=== PATIENT | male | born 1985 | race Caucasian/White ===

== ENCOUNTER → 2023-04-29 | Outpatient (CLI) | payer OTHER, SELFPAY ==
[2023-04-29 15:40] LABS: Prothrombin Time (Protime)PT. 13.4 SECONDS (11.7-14.9)
[2023-04-29 15:41] LABS: Partial Thromboplast Time 28.4 Seconds (24.1-36.2)
[2023-04-29 15:53] LABS: AST(SGOT) 42 U/L (15-37); Alanine Aminotransfer ALT/SGPT 92 U/L (16-61); Albumin, Serum 4.1 g/dL (3.2-5.0); Alkaline Phosphatase 78 U/L (45-117); Bilirubin, Direct 0.13 mg/dL (0.00-0.30); GGTP 63 U/L (15-85); Globulin 4.4 g/dL (2.2-4.2); Protein, Total 8.5 g/dL (6.4-8.2)
[2023-05-02 21:07] LABS: AFP, Tumor Marker 2.1 ng/mL (0.0-6.9); HCV Quant. RNA PCR 986000 IU/mL (.); HCV log 10 5.994 (.); Hepatitis C Genotype 1a (.)
== END | disposition home or self-care (01) ==
PROVIDERS: Referring Provider Internal Medicine Gastroenterology; Visit Provider Internal Medicine Gastroenterology
DX: B19.20 Unspecified viral hepatitis C without hepatic coma (principal)
CPT/HCPCS: 36415; 80076; 82105; 82977; 85610; 85730; 87522; 87902

== ENCOUNTER 2023-05-12 22:20 | Emergency (ER) | payer OTHER, SELFPAY ==
[2023-05-12 22:22] VITALS: BP 135/73; PULSE 88; RESP 13; TEMP 36.9; O2SAT 97; BMI 19.8
[2023-05-12 22:28] VITALS: O2SAT 96
--- OUTSIDE RECORDS SUMMARY | 2023-05-12 22:42 | XMS RPT_ITS | CCD ---
Author Name Unknown Address [address] [place] [address] Organization [facility] Care Team Providers Care Palliative Medicine Physician Name Role Phone KAYLEIGH CEDEÑO Referring Unavailable Unavailable Primary Care Provider UnavailRASTA Paulino Attending Unavailable ANILA WAGNER Primary Care Unavailable Bernard DIRECTOR OF HEALTH CARE MARKETINGTEW[facility]OSPITALAnila Primary Care Provider Bernadr PARTY PLAN SELLING DISTRIBUTORAnila Primary Care Provider ANILA WAGNER Primary Care Unavailable BERNARD, ANILA Camargo Primary Care Unavailable ANJU HINDS Attending Unavailable RED MOE Referring Unavailable ANILA WAGNER Primary Care Unavailable BERNARD, ANILA Camargo Primary Care Unavailable ANJU HINDS Attending Unavailable ANILA WAGNER Primary Care Unavailable SALOME LEE Referring Unavailable BERNARD, ANILA ACOSTA Primary Care Unavailable SERENA VELÁZQUEZ Attending Unavailable CAMELIA WOODARD Attending Unavailable ZAFAR MONTEMAYOR Referring Unavailable BERNARD, ANILA JEREZE Primary Care Unavailable YOLANDA EUBANKS Admitting Unavailable SERENA VELÁZQUEZ Consulting Unavailable ANILA WAGNER Primary Care Unavailable ANILA WAGNER Attending Unavailable ANILA WAGNER Referring Unavailable Allergies Allergy Classification Reported Allergen(s) Allergy Type Date of Onset Reaction(s) Facility (10 sources) traMADol; Translations: [TRAMADOL] Drug Allergy 5 Rash, Hives, Itching [facility] [place], [place] (6 sources) Naloxone; Translations: [NALOXONE] Drug Allergy 4 Rash, Hives, Swelling [facility] Medications Current Medications Medication Drug Class(es) Dates Sig (Normalized) Sig (Original) buprenorphine 8 mg sublingual tablet (2 sources) Partial Opioid Agonist Start: 02-02-2020 buprenorphine (SUBUTEX) 8 MG SUBL SL tablet DISSOLVE 1 TAB UNDER TONGUE TWICE A DAY 0 02/02/2020 Active Completed/Discontinued Medications Medication Drug Class(es) Dates Sig (Normalized) Sig (Original) acetaminophen 325 mg oral tablet (1 source) Start: 04-26-2023 End: 04-26-2023 acetaminophen (Tylenol) tablet 650 mg diphenhydrAMINE (1 source) Histamine-1 Receptor Antagonist Start: 02-27-2023 End: 02-27-2023 diphenhydrAMINE (BENADryl) injection 25 mg ibuprofen 600 mg oral tablet (1 source) Nonsteroidal Anti-inflammatory Drug Start: 03-18-2020 take 1 tablet by mouth every six hours as needed ibuprofen (MOTRIN) 600 mg tablet Take 1 tablet by mouth every 6 hours as needed for Pain. 28 tablet 0 03/18/2020 Active Problems Active Problems Problem Classification Problem Date Documented Da te Episodic/Chronic Esophageal disorders (3 sources) Gastroesophageal reflux disease without esophagitis; Translations: [Gastro-esophageal reflux disease without esophagitis] Onset: 4 04-29-2023 Chronic Esophageal disorders (4 sources) Achalasia of esophagus; Translations: [Achalasia of cardia] Onset: 4 04-26-2023 Episodic Headache; including migraine (1 source) Acute headache; Translations: [Acute nonintractable headache, unspecified headache type] 02-27-2023 Episodic Headache; including migraine (2 sources) Headache; including migraine; Translations: [Headache, unspecified] Onset: 3 Nonspecific chest pain (3 sources) Chest pain; Translations: [Chest pain, unspecified] Onset: 4 04-26-2023 Episodic Other gastrointestinal disorders (1 source) Dysphagia, unspecified; Translations: [Dysphagia, unspecified type] Onset: 4 Episodic Other lower respiratory disease (2 sources) Shortness of breath; Translations: [Shortness of breath] Onset: 4 Episodic Past or Other Problems Problem Classification Problem Date Documented Da te Episodic/Chronic Viral infection (1 source) Viral disease; Translations: [Viral illness] Episodic Results Test Name Value Interpretation Reference Range Facil ity Vital Signs Date Time Vital Sign Value Performing Clinician Facility 04-29-2023 02:03-0500 Diastolic blood pressure 71 mm[Hg] Anju Hinds DO Work Phone: [phone] [place] [address] 04-29-2023 02:03-0500 Heart rate 77 /min Anju Hinds DO Work Phone: 9([phone])[phone] [place] [address] 04-29-2023 02:03-0500 Respiratory rate 16 /min Anju Hinds DO Work Phone: 0([phone])[phone] [place] [address] 04-29-2023 02:03-0500 SaO2% (BldA) [Mass fraction] 98 % Anju Hinds DO Work Phone: 6(862)[phone] [place] [address] 04-29-2023 02:03-0500 Systolic blood pressure 128 mm[Hg] Anju Hinds DO Work Phone: 9(278)[phone] [place] [address] 04-28-2023 23:25-0500 Body height 180.3 cm Anju Hinds DO Work Phone: 6([phone])[phone] [place] [address] 04-28-2023 23:25-0500 Body mass index (BMI) [Ratio] 21.2 kg/m2 Anju Hinds DO Work Phone: 9(479)[phone] [place] [address] 04-28-2023 23:25-0500 Body temperature 98.01 [degF] Anju Hinds DO Work Phone: 6(132)[phone] [place] [address] 04-28-2023 23:25-0500 Body weight 68.95 kg Anju Hinds DO Work Phone: 3(630)[phone] [place] [address] 04-26-2023 20:47-0500 Diastolic blood pressure 55 mm[Hg] Red Moe DO Work Phone: 6(049)[phone] [place] [address] 04-26-2023 20:47-0500 Heart rate 82 /min Red Moe DO Work Phone: 1(328)[phone] [place] [address] 04-26-2023 20:47-0500 Respiratory rate 18 /min Red Moe DO Work Phone: [facility] 04-26-2023 20:47-0500 SaO2% (BldA) [Mass fraction] 99 % Red Moe DO Work Phone: [facility] 04-26-2023 20:47-0500 Systolic blood pressure 121 mm[Hg] Red Monrealersen DO Work Phone: [facility] 04-26-2023 17:01-0500 Body height 180.3 cm Red Moe DO Work Phone: 4(998)[phone] [place] [address] 04-26-2023 17:01-0500 Body mass index (BMI) [Ratio] 21.48 kg/m2 Red Moe DO Work Phone: 7(203)[phone] [place] [address] 04-26-2023 17:01-0500 Body temperature 98.29 [degF] Red Moe DO Work Phone: 7(400)[phone] [place] [address] 04-26-2023 17:01-0500 Body weight 69.85 kg Red Moe DO Work Phone: [facility] 02-27-2023 12:00-0500 Diastolic blood pressure 88 mm[Hg] Anila Wagner DIRECTOR OF HEALTH CARE MARKETING-PARTY PLAN SELLING DISTRIBUTOR Work Phone: 8([phone] [place] [address] 02-27-2023 12:00-0500 Heart rate 75 /min Anilacampbell Coronadoany DIRECTOR OF HEALTH CARE MARKETING-PARTY PLAN SELLING DISTRIBUTOR Work Phone: [phone] [place] [address] 02-27-2023 12:00-0500 Respiratory rate 17 /min Anila Delany DIRECTOR OF HEALTH CARE MARKETING-PARTY PLAN SELLING DISTRIBUTOR Work Phone: 7([phone])[phone] [place] [address] 02-27-2023 12:00-0500 SaO2% (BldA) [Mass fraction] 98 % Anila Delany DIRECTOR OF HEALTH CARE MARKETING-PARTY PLAN SELLING DISTRIBUTOR Work Phone: [phone] [place] [address] 02-27-2023 12:00-0500 Systolic blood pressure 134 mm[Hg] Anila Delany DIRECTOR OF HEALTH CARE MARKETING-PARTY PLAN SELLING DISTRIBUTOR Work Phone: 1(344)[phone] [place] [address] 02-27-2023 09:55-0500 Body height 180.3 cm Anila Cliffharshal DIRECTOR OF HEALTH CARE MARKETING-PARTY PLAN SELLING DISTRIBUTOR Work Phone: [facility] 02-27-2023 09:55-0500 Body mass index (BMI) [Ratio] 21.48 kg/m2 Anila Wagner DIRECTOR OF HEALTH CARE MARKETING-PARTY PLAN SELLING DISTRIBUTOR Work Phone: [facility] 02-27-2023 09:55-0500 Body temperature 97 [degF] Anila Cliffharshal DIRECTOR OF HEALTH CARE MARKETING-PARTY PLAN SELLING DISTRIBUTOR Work Phone: [facility] 02-27-2023 09:55-0500 Body weight 69.85 kg Anila Wagner DIRECTOR OF HEALTH CARE MARKETING-PARTY PLAN SELLING DISTRIBUTOR Work Phone: [facility] Encounters Encounter Date Encounter Type Care Provider Facility Start: 05-07-2023 End: 05-08-2023 ambulatory ANILA WAGNER [facility] Start: 05-02-2023 End: 05-02-2023 ambulatory SALOME LEE Facility:[facility] Start: 05-01-2023 End: 05-03-2023 ambulatory CAMELIA WOODARD Facility:[facility] Start: 04-30-2023 Emergency department patient visit [facility] Facility[facility] Start: 04-30-2023 Telephone encounter Valorie norris MD Work Phone: DC Provider Adult Start: 04-29-2023 End: 04-29-2023 Emergency department patient visit ANILA WAGNER [facility] Start: 04-28-2023 End: 04-29-2023 Emergency department patient visit Anju Hinds DO Work Phone: [facility] Emergency Medicine Procedures Date Procedure Procedure Detail Performing Clinician Start: 04-29-2023 XR CHEST 1 VIEW ANILA RIVAS Start: 04-29-2023 Radiologic exam ches t single view Anju Estrada Guzman DO Work Phone: Start: 04-27-2023 ECG 12-LEAD ANILA TEAGUE Start: 04-27-2023 Ecg routine ecg w/le ast 12 lds trcg only w/o i&r Red Moe DO Work Phone: Start: 04-26-2023 AMYLASE ANILA CORONADOShemar MONTIEL Start: 04-26-2023 Lipase [Enzymatic activity/volume] in Serum or Plasma ANILACAMPBELL CORONADOHARSHAL Start: 04-26-2023 SERIAL TROPONIN, 1 HOUR ANILA CORONADOHARSHAL Start: 04-26-2023 CT ANGIO CHEST FOR PULMONARY EMBOLISM ANILA WAGNER Start: 04-26-2023 XR CHEST 1 VIEW ANILA RIVAS Start: 04-26-2023 End: 04-26-2023 Assay of amylase Anju Hinds DO Work Phone: Start: 04-26-2023 CBC W Auto Different ial panel - Blood ANILA WAGNER Start: 04-26-2023 Comprehensive metabo lic 2000 panel - Serum or Plasma ANILA CORONADOHARSHAL Start: 04-26-2023 D-DIMER, VTE EXCLUSION ANILA WAGNER Start: 04-26-2023 Magnesium [Mass/volu me] in Serum or Plasma ANILA WAGNER Start: 04-26-2023 TROPONIN SERIES- (IN ITIAL, 1 HR) ANILA CORONADOHARSHAL Start: 04-26-2023 Ct angiography chest w/contrast/noncontrast Red Moe DO Work Phone: Start: 04-26-2023 Radiologic exam ches t single view Red Moe DO Work Phone: Start: 04-26-2023 Comprehensive metabo lic panel Red Moe DO Work Phone: Start: 04-26-2023 Troponin I.cardiac p henri - Serum or Plasma by High sensitivity method Red Moe DO Work Phone: Start: 02-27-2023 CT HEAD WO IV CONTRAST ANILA WAGNER Start: 02-27-2023 INFLUENZA A AND B PCR V FELIPE WAGNER Start: 02-27-2023 SARS-COV-2 PCR, SYMPTOMATIC ANILA WAGNER Start: 02-27-2023 Ct head/brain w/o co ntrast material Monalisa Godoy PA-C Work Phone: Start: 02-27-2023 Influenza virus A an d B RNA [Identifier] in Unspecified specimen by ZOË with probe detection Monalisa Godoy PA-C Work Phone: Start: 02-27-2023 SARS-CoV-2 (COVID-19 ) RNA [Presence] in Respiratory specimen by ZOË with probe detection Monalisa Godoy PA-C Work Phone: Start: 02-09-2020 COVID-19 AMBULATORY NITHIN JEFF CEDEÑO Plan of Treatment Date Care Activity Detail Author Start: 2035 Zoster Vaccines (1 of 2) Zoster Vaccines (1 of 2) [facility] Start: 07-04-2029 DTaP/Tdap/Td vaccine (5 - Td) DTaP/Tdap/Td vaccine (5 - Td) [place] Start: 07-04-2029 DTaP/Tdap/Td Vaccines (2 - Td or Tdap) DTaP/Tdap/Td Vaccines (2 - Td or Tdap) [facility] Start: 07-04-2029 Urine microalbumin profile DTaP,Tdap,Td Vaccine (6 - Td or Tdap) [facility] Start: 03-30-2023 Depression Assessment Depression Assessment [facility] Start: 11-28-2022 Influenza vaccination Influenza Vaccine (#1) [facility] Start: 01-23-2020 Lipid panel Lipid Screening [facility] Start: 11-29-2019 Influenza vaccination Flu vaccine (#1) [place], [place] Start: 2007 DTaP/Tdap/Td Vaccines (1 - Tdap) DTaP/Tdap/Td Vaccines (1 - Tdap) [facility] Start: 2003 Hepatitis C screening Hepatitis C Screening [facility] Start: 2003 HIV screening HIV Screening [facility] Start: 01-23-2000 HIV screening HIV screen [place], [place] Start: 12-19-1997 Hepatitis B vaccine (2 of 3 - 3-dose primary series) Hepatitis B vaccine (2 of 3 - 3-dose primary series) [place] Start: 12-19-1997 Hepatitis B Vaccine (2 of 3 - 3-dose series) Hepatitis B Vaccine (2 of 3 - 3-dose series) [facility] Start: 1991 Pneumococcal 0-64 years Vaccine (1 of 1 - PPSV23) Pneumococcal 0-64 years Vaccine (1 of 1 - PPSV23) [place], [place] Start: 1986 MMR Vaccines (1 of 1 - Standard series) MMR Vaccines (1 of 1 - Standard series) [facility] Start: 1986 Varicella vaccination Varicella Vaccines (1 of 2 - 2-dose childhood series) [facility] Start: 1986 Varicella vaccine (1 of 2 - 2-dose childhood series) Varicella vaccine (1 of 2 - 2-dose childhood series) [place] Start: 1985 COVID-19 Vaccine (#1) COVID-19 Vaccine (#1) [facility] Start: 1985 Hepatitis B Vaccines (1 of 3 - 3-dose series) Hepatitis B Vaccines (1 of 3 - 3-dose series) [facility] Start: 1985 HIV screening HIV Screening [facility] Start: 1985 Lipid panel Lipid Panel [facility] Start: 1985 Yearly Adult Physical Yearly Adult Physical [facility] End: 02-10-2020 Covid-19 Ambulatory Covid-19 Ambulatory Lab Routine Viral illness 1 Occurrences starting 02/10/2020 until 02/10/2020 [place], [place] Immunizations Immunization Date Immunization Notes Care Provider Nilesh castillo 07-05-2019 tetanus toxoid, redu onelia diphtheria toxoid, and acellular pertussis vaccine, adsorbed Valorie Hope MD Work Phone: [facility] Payers Date Payer Category Payer Unknown [employer] [id number] 2022-Present [address] [place] [address] [id number] 2022 Unknown [id number] 2021 Unknown [id number] 2019 Unknown [id number] 1985 Unknown [id number] 1985 Unknown [id number] 1985 Unknown [id number] 1985 Unknown [id number] 1985 Unknown [id number] 1985 Unknown [id number] 1985 Unknown [id number] 1985 Unknown [id number] Unknown [id number] Social History Date Type Detail Facility Start: 02-09-2020 Tobacco smoking stat [facility] Current some day smoker [place] Start: 02-09-2020 End: 05-01-2023 Cigarettes smoked current (pack per day) - Reported [facility] Start: 02-09-2020 End: 04-30-2023 Tobacco use and exposure Never used [place], [place] Start: 02-09-2020 Alcohol intake Current non-dr excel specialist of alcohol (finding) [place], [place] Start: 1985 Sex Assigned At Not on file [place] Start: 02-27-2023 End: 04-30-2023 Tobacco smoking status NHIS Ex-smoker [facility] Work Phone: End: 09-25-2018 History of tobacco use Current smoker [facility] Work Phone: End: 09-25-2018 History of tobacco use Cigarette Smoker [facility] Work Phone: Start: 02-27-2023 End: 04-30-2023 Alcohol intake Ex-drinker (finding) [facility] Work Phone: Start: 04-26-2023 End: 05-01-2023 Gender identity Not on file [facility] Start: 02-17-2023 End: 04-29-2023 Exposure to SARS-CoV-2 (event) Not sure [facility] Work Phone: How often to you hav e a drink containing alcohol? Monthly or less [facility] Average Number of Drinks Not on file [facility] Start: 04-30-2023 Alcohol Comment only on new years [facility] Clinical Notes 02-27-2023 to 05-03-2023 Telephone Encounter - Valorie Hope MD - 04/30/2023 9:10 PM ESTMark W Hinds, DO - 04/28/2023 11:22 PM ESTMark W Hinds, DO - 04/28/2023 11:22 PM ESTMark W Hinds, DO - 04/26/2023 4:57 PM EST Note Date & Type Note Facility 05-03-2023 Note HNO ID: [id number] Author: KIM YAN RN Service: Care Management Author Type: Registered Nurse Type: Care Mgt Progress Note Filed: 05/03/2023 11:33 Note Text: CARE MANAGEMENT DISCHARGE NOTE SERVICE DATE: May 03, 2023 SERVICE TIME: 11:33 AM Admission Date: 05/01/2023 LOS: 0 days Discharge Arrangement Discharge Arrangement: Home with Self Care Services Arranged Medical Services: Other: See Comment Provider Name: NA Phone: NA Caregiver Assessment Caregiver is ready, willing and able to meet the patient's needs as recommended by the inter-professional team: No Caregiver needed Transportation Arrangements Transportation Arrangements: Car Date of Trip: 05/03/23 Destination: home Handoff Communication: Handoff to: Primary Care Physician Primary Care Physician Name/Phone: Anila Wagner [phone] Additional Information: Discharge written for patient to go home. Patient agreeable to discharge plan and denies needs. to transport. Bedside nurse updated. SOC sent to PCP. SIGNATURE: Kim Yan RN PATIENT NAME: Dannie Mary DATE: May 03, 2023 TIME: 11:33 AM CONTACT #: [phone] [facility] 05-02-2023 Note HNO ID: [id number] Author: CAMELIA WOODARD MD Service: Hospital Medicine Author Type: Physician Type: Progress Notes Filed: 05/03/2023 07:44 Note Text: DEPARTMENT OF HOSPITAL MEDICINE PROGRESS NOTE SERVICE DATE: 05/02/2023 SERVICE TIME: 3:10 PM Hospital Medicine/Primary Attending: Camelia Woodard MD NIGHT AND WEEKEND COVERAGE: [place] COVERAGE: Days: [phone], please page attending physician. Nights: [phone], please page [place] Hospitalist Night coverage pager [phone]. Subjective INTERVAL HPI: Patient reports able to swallow but still with mild discomfort but no longer feeling like the food is stuck. Concerned about unexplained weight loss in 6 months (from 150 to 256 pounds down to 136 pounds ) though admits that he has not been eating much because of dysphagia and often times nearly passes out as he is trying to get food down No fever,chills,N/V/D/constipation Current Facility-Administered Medications Medication Dose Route Frequency NaCl 0.9% iv flush bag 20 mL INTRAVENOUS PRN ondansetron orally disintegrating 4 mg tab(s) (ZOFRAN ODT) 4 mg ORAL q 6 H PRN Or ondansetron (PF) 4 mg injection (ZOFRAN) 4 mg INTRAVENOUS q 6 H PRN lactated ringers iv infusion 50 mL/hr INTRAVENOUS CONTINUOUS buprenorphine SL 8 mg tab(s) (SUBUTEX) 8 mg SUBLINGUAL AT BEDTIME buprenorphine SL 8 mg tab(s) (SUBUTEX) 8 mg SUBLINGUAL DAILY (9 AM) buprenorphine SL 8 mg tab(s) (SUBUTEX) 8 mg SUBLINGUAL DAILY (1 PM) acetaminophen 650 mg CUP (TYLENOL) 650 mg ORAL q 6 H PRN lactated ringers iv infusion 5-30 mL/hr INTRAVENOUS CONTINUOUS iv contrast (radiology procedure) INTRAVENOUS DIRECTED PRN enteric contrast (radiology procedure) ORAL DIRECTED PRN pantoprazole 40 mg injection (PROTONIX) 40 mg INTRAVENOUS BID AC (0600/1600) Objective PHYSICAL EXAM: BP 125/75 Pulse 81 Temp (Src) 98.6 (Oral) Resp 16 Ht 5' 11 (1.80m) Wt 136 lb 1.6 oz (61.7kg) SpO2 96% BMI 18.99 kg/(m2). O2 Therapy: Room Air Physical Exam Performed GENERAL: Alert, no distress, cooperative LUNGS: Lungs clear to auscultation, Good diaphragmatic excursion CARDIAC: Normal S1 and S2; no rubs, murmurs, or gallops ABDOMEN: Abdomen soft, tender mass felt on the LLQ not groin - patient is unsure if this is acute or chronic as he as not had any exam in that area EXTREMITIES: No edema nor calf tenderness NEURO:Awake,alert,oriented x3 .Can move all extremity w/o new focal neurological deficit Lines, Drains, and Airways Line Duration Peripheral 04/30/232003 [facility] Right Forearm 20 Gauge 2 days Reviewed lines and needs to be continued: REASONS: Intravenous fluids, Telemetry, and Electrolyte replacement DATA: Diagnostic tests reviewed for today's visit: Most recent labs Most recent imaging Most recent EKG Assessment/Plan Problem List Dizziness (POA: Yes) HOSPITAL COURSE: Dannie Mary is a 38 year old male with history of heroin abuse, in remission, dysphagia to solids for 2-3 months ?dc achalasia who presents with shortness of breath and near syncope and feeling like he is choking. He has been having trouble swallowing any solids for months. He saw a GI doctor outpt and was planning for EGD soon. Last Thursday 1 week ago he ate a burrito and felt like it got stuck. He had a lot of coughing and initially thought it went down. Next day he got feeling of chest pain and pressure coming up his chest and felt like he was choking again. He went ot ER 04/26 thinking he had a heart attack. They did troponin EKD CT PE was negative was sent home to f/u with GI for EGD. He had another episode today where he felt chest pressure and got very short of breath, felt like food being stuck still. He had paresthesias and felt like he would pass out. Some epigastric abd pain. He had a few sips water today but hasn't been able to eat food at all for nearly all week. Chest pain Dysphagia, feeling of choking Concern for food impaction GERD with - reports chest pressure and intermittent choking feeling since 1 week ago after eating burrito and choking - has felt pressure like still stuck -Have not been able to eat steak , eat regular solid food for about 6 months -Have lost weight since then -Drinks large amounts of caffeine, eats spicy food -Denies alcohol,NSAID use - went to ER 04/26 ruled out for PE and ACS - was pending EGD outpt - cardiac enzymes negative, EKG normal -S/P glucagon w/o improvement -S/P EGD today Mild stricture distal esophagus s/p dilation,Mild Schatzki ring and Small hiatal hernia, No food bolus -Per GI, start protonix 40mg BID, denta, soft diet, discharge if he tolerates diet - Patient just eating , will see how he tolerates it. -Discussed triggers of GERD Near syncope Likely due to significant dysphagia /pain /possible aspiration S/P rx with IVF Orthostatics ordered- pending Telemetry LLQ Abdominal mass /tenderness Weight loss (Per p (more content not included)... [facility] 05-02-2023 Note HNO ID: [id number] Author: JEFFERY FERNANDO APRN.CRNA Service: Anesthesiology Author Type: Nurse Strategic Debriefing Specialist Type: Anesthesia Procedure Notes Filed: 05/02/2023 09:07 Note Text: ANESTHESIOLOGY PROCEDURE NOTE Airway General Information Procedure Start Time/Medication Administration: 05/02/2023 9:03 AM Patient location during procedure: OR Timeout Performed Pre-procedure: timeout performed Consent Obtained: Yes Patient identity confirmed: arm band and patient Staffing BODY ART TECHNICIAN: Jeffery Fernando APRN.BODY ART TECHNICIAN Performed by: CHAD Indications and Patient Condition Indications for airway management: anesthesia Preoxygenated: yes anesthesia circuit Method: sleep Difficult Mask: No Final Airway Details Final airway type: endotracheal airway Final Endotracheal Airway: ETT Cuffed: yes Successful intubation technique: direct laryngoscopy Blade: Terri Blade size: #4 ETT size (mm): 7.5 Placement verified by: capnometry Cormack-Lehane Classification: grade I - full view of glottis Number of attempts at approach: 1 Airway not difficult SIGNATURE: Jeffery Fernando APRN.BODY ART TECHNICIAN PATIENT NAME: Dannie Mary DATE: May 02, 2023 TIME: 9:07 AM CSN: [id number] [facility] 05-01-2023 Note HNO ID: [id number] Author: CLEO BARTH LSW Service: Care Management Author Type: Mail Caller Type: Care Mgt Initial Assessment Filed: 05/01/2023 16:27 Note Text: CARE MANAGEMENT: ASSESSMENT AND DISCHARGE PLAN SERVICE DATE: May 01, 2023 SERVICE TIME: 4:20 PM PCP: Anila Wagner CNP Primary Contact: Extended Emergency Contact Information Primary Emergency Contact: Elena Mary Mobile Relation: Spouse Admission Status: Observation Insurance Provider: [employer] Discharge Planning requested by: Per Department Practice Potential Transition Plans Home Advance Directives Current Advance Directive: None Coin Machine Supervisor Attempted to Assist with AD Completion: Yes Action: Education Provided Current Living Arrangements and Support Lives with: Children, Spouse/significant other Type of Residence: Private Residence (House) Support: Children, Spouse/significant other, Family members, Friends/neighbors How do you manage to accomplish the following: Independent: Ambulation;Bathe/Shower;Dress;Amarilis ls/Meal Prep;Going to the bathroom;Medication Management;Transportation to appointments/community Current Services/Equipment Current Post-Acute Service(s): None Discharge Planning Patient Goal(s): Be able to go home, General wellness [place] of [place] Explained: [place] Given: No Reason Not Given: No placements necessary Are you interested in bedside delivery of your medications? No Discharge Planning Participant(s): Patient Patient/Family Comments: Caregiver Assessment: Caregiver is ready, willing and able to meet the patient's needs as recommended by the inter-professional team: No Caregiver needed Transport at Discharge: Transportation Arrangements: Car Destination: home Needs Prior to Discharge: Needs Prior to Discharge: To Be Determined;Discharge Transportation;Other: See Comment (medical clearance) Post-Acute Discharge Plan: CMSW met with patient at bedside; introduced self/role. Patient is a 38 year old male who presents with dizziness. Patient has a history of herion abuse but states that he has not used since 2015 and denies substance abuse resources. Patient states that he lives with his spouse and children. Patient states that he is well supported and reports being IPTA with ADLs and denies the use of DME or skilled services. Patient states that he is employed with [employer] in [place] and states that he will need a work release as well as short term disability paperwork completed. Patient states that his spouse will transport at discharge. CM assigned will continue to follow for discharge needs. SIGNATURE: LUDIVINA Alexis PATIENT NAME: Dannie Mary DATE: May 01, 2023 TIME: 4:20 PM CONTACT #: [phone] [facility] 04-30-2023 Miscellaneous Notes Past 5-6 days GI upset, [facility] [place] with CP, blocking airway, near syncope. Workup is negative. Thought GERD and recommended OP GI said EGD next week. But something else is going on. 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 Patient states he had an episode tonight which precipitated him having some tremors due to the pain. Patient was unable to be seen today and is scheduled to see a teacher counselor tomorrow. Patient denies any chest pain, nausea or vomiting. Symptoms have improved upon physical examination. Patient will be given liquid Carafate and reassessed. Patient was given Pepcid 20 mg p.o. which seemed to help. Patient states he had taken Carafate earlier today with minimal improvement. Patient will be discharged to follow-up with his teacher counselor today. History provided by: Patient and spouse Winifrede Coma Scale Score: 15 Patient History History reviewed. No pertinent past medical history. History reviewed. No pertinent surgical history. No family history on file. Social History Tobacco Use Smoking status: Former Types: Cigarettes Smokeless tobacco: Not on file Substance Use Topics Alcohol use: Not Currently Drug use: Yes Types: Marijuana Physical Exam ED Triage Vitals [04/28/23 2325] Temperature Heart Rate Respirations BP 36.7 C (98 F) (!) 104 16 130/80 Pulse Ox Temp Source Heart Rate Source Patient Position 96 % Oral Monitor Sitting BP Location FiO2 (%) Left arm -- Physical Exam Vitals and nursing note reviewed. Constitutional: General: He is not in acute distress. Appearance: He is well-developed. Comments: Thin and somewhat cachectic appearing 38-year-old male. HENT: Head: Normocephalic and atraumatic. Eyes: Conjunctiva/sclera: Conjunctivae normal. Cardiovascular: Rate and Rhythm: Normal rate and regular rhythm. Heart sounds: No murmur heard. Pulmonary: Effort: Pulmonary effort is normal. No respiratory distress. Breath sounds: Normal breath sounds. Abdominal: Palpations: Abdomen is soft. Tenderness: There is no abdominal tenderness. Musculoskeletal: General: No swelling. Cervical back: Neck supple. Skin: General: Skin is warm and dry. Capillary Refill: Capillary refill takes less than 2 seconds. Neurological: Mental Status: He is alert. Psychiatric: Mood and Affect: Mood normal. ED Course & MDM Diagnoses as of 04/29/23 0158 Achalasia Gastroesophageal reflux disease without esophagitis Medical Decision Making 1 take medication as prescribed 2 follow-up with GI today, if worse return to ED. Procedure Procedures Anju Hinds DO 04/29/23 0200 documented in this encounter [facility] Work Phone: 04-28-2023 Physician Emergency department Note HPI Chief Complaint Patient presents with Tremors Dysphagia 38-year-old male presents with recurrence of severe dysphagia. Patient states he had an episode tonight which precipitated him having some tremors due to the pain. Patient was unable to be seen today and is scheduled to see a teacher counselor tomorrow. Patient denies any chest pain, nausea or vomiting. Symptoms have improved upon physical examination. Patient will be given liquid Carafate and reassessed. Patient was given Pepcid 20 mg p.o. which seemed to help. Patient states he had taken Carafate earlier today with minimal improvement. Patient will be discharged to follow-up with his teacher counselor today. History provided by: Patient and spouse Winifrede Coma Scale Score: 15 Patient History History reviewed. No pertinent past medical history. History reviewed. No pertinent surgical history. No family history on file. Social History Tobacco Use Smoking status: Former Types: Cigarettes Smokeless tobacco: Not on file Substance Use Topics Alcohol use: Not Currently Drug use: Yes Types: Marijuana Physical Exam ED Triage Vitals [04/28/23 2325] Temperature Heart Rate Respirations BP 36.7 C (98 F) (!) 104 16 130/80 Pulse Ox Temp Source Heart Rate Source Patient Position 96 % Oral Monitor Sitting BP Location FiO2 (%) Left arm -- Physical Exam Vitals and nursing note reviewed. Constitutional: General: He is not in acute distress. Appearance: He is well-developed. Comments: Thin and somewhat cachectic appearing 38-year-old male. HENT: Head: Normocephalic and atraumatic. Eyes: Conjunctiva/sclera: Conjunctivae normal. Cardiovascular: Rate and Rhythm: Normal rate and regular rhythm. Heart sounds: No murmur heard. Pulmonary: Effort: Pulmonary effort is normal. No respiratory distress. Breath sounds: Normal breath sounds. Abdominal: Palpations: Abdomen is soft. Tenderness: There is no abdominal tenderness. Musculoskeletal: General: No swelling. Cervical back: Neck supple. Skin: General: Skin is warm and dry. Capillary Refill: Capillary refill takes less than 2 seconds. Neurological: Mental Status: He is alert. Psychiatric: Mood and Affect: Mood normal. ED Course & MDM Diagnoses as of 04/29/23 0158 Achalasia Gastroesophageal reflux disease without esophagitis Medical Decision Making 1 take medication as prescribed 2 follow-up with GI today, if worse return to ED. Procedure Procedures Anju Hinds DO 04/29/23 0200 [facility] Work Phone: 04-26-2023 Emergency department Note Emergency Medicine Transition of Care Note. I received Dannie Mary in signout from Dr. Moe. Please see the previous ED provider note for all HPI, PE and MDM up to the time of signout at 1900. This is in addition to the primary record. In brief Dannie Mary is an 38 y.o. male presenting for Chief Complaint Patient presents with Chest Pain Patient to ED via wheelchair with c/o chest pain, onset 1615 today while sitting in chair. Reports chest and head pressure, hands and feet tingling and I could hear my heartbeat -- episode lasted approx 1 minute. Denies chest pain at this time but c/o feeling shaky Reports difficulty swallowing x 2 years, like my food gets stuck At the time of signout we were awaiting:CT of Chest. With the patient at length. He indicated to me that he has been having problems swallowing for approximately 1 year. Patient states the symptoms associated with with that or why he is here. Patient will be given a dose of Carafate and reassessed. I did go over all the results with the patient indicating this is not cardiac but I have concerns that he has some type of achalasia or dysphagia. Diagnoses as of 04/26/232041 Achalasia Chest pain, unspecified type Labs Reviewed CBC WITH AUTO DIFFERENTIAL - Abnormal Result Value WBC 6.3 nRBC 0.0 RBC 4.52 Hemoglobin 13.1 (*) Hematocrit 39.7 (*) MCV 88 MCH 29.0 MCHC 33.0 RDW 12.5 Platelets 180 Neutrophils % 64.8 Immature Granulocytes %, Automated 0.3 Lymphocytes % 23.1 Monocytes % 7.5 Eosinophils % 3.3 Basophils % 1.0 Neutrophils Absolute 4.08 Immature Granulocytes Absolute, Automated 0.02 Lymphocytes Absolute 1.45 Monocytes Absolute 0.47 Eosinophils Absolute 0.21 Basophils Absolute 0.06 COMPREHENSIVE METABOLIC PANEL - Abnormal Glucose 145 (*) Sodium 137 Potassium 3.3 (*) Chloride 103 Bicarbonate 25 Anion Gap 12 Urea Nitrogen 7 Creatinine 0.68 eGFR >90 Calcium 8.9 Albumin 4.1 Alkaline Phosphatase 61 Total Protein 7.0 AST 45 (*) Bilirubin, Total 0.3 ALT 70 (*) MAGNESIUM - Abnormal Magnesium 1.59 (*) D-DIMER, VTE EXCLUSION - Normal D-Dimer, Quantitative VTE Exclusion <215 Narrative: The VTE Exclusion D-Dimer assay is reported in ng/mL Fibrinogen Equivalent Units (FEU). Per back roll lathe operator's instructions for use, a value of less than 500 ng/mL (FEU) may help to exclude DVT or PE in outpatients when the assay is used with a clinical pretest probability assessment.(AE must utilize and document eCalc 'Wells Score Deep Vein Thrombosis Risk' for DVT exclusion only. Emergency Department should utilize Guidelines for Emergency Department Use of the VTE Exclusion D-Dimer and Clinical Pretest probability assessment model for DVT or PE exclusion.) SERIAL TROPONIN-INITIAL - Normal Troponin I, High Sensitivity <3 Narrative: Less than 99th percentile of normal range cutoff- Female and children under 18 years old <14 ng/L; Male <21 ng/L: Negative Repeat testing should be performed if clinically indicated. Female and children under 18 years old 14-50 ng/L; Male 21-50 ng/L: Consistent with possible cardiac damage and possible increased clinical risk. Serial measurements may help to assess extent of myocardial damage. >50 ng/L: Consistent with cardiac damage, increased clinical risk and myocardial infarction. Serial measurements may help assess extent of myocardial damage. NOTE: Children less than 1 year old may have higher baseline troponin levels and results should be interpreted in conjunction with the overall clinical context. NOTE: Troponin I testing is performed using a different testing methodology at [facility] than at other [facility]. Direct result comparisons should only be made within the same method. SERIAL TROPONIN, 1 HOUR - Normal Troponin I, High Sensitivity <3 Narrative: Less than 99th percentile of normal range cutoff- Female and children under 18 years old <14 ng/L; Male <21 ng/L: Negative Repeat testing should be performed if clinically indicated. Female and children under 18 years old 14-50 ng/L; Male 21-50 ng/L: Consistent with possible cardiac damage and possible increased clinical risk. Serial measurements may help to assess extent of myocardial damage. >50 ng/L: Consistent with cardiac damage, increased clinical risk and myocardial infarction. Serial measurements may help assess extent of myocardial damage. NOTE: Children less than 1 year old may have higher baseline troponin levels and results should be interpreted in conjunction with the overall clinical context. NOTE: Troponin I testing is performed using a different testing methodology at [facility] than at other [facility]. Direct result comparisons should only be made within the same method. LIPASE - Normal Lipase 14 Narrative: Venipuncture immediately after or during the administration of Metamizole may lead to falsely low results. Testing should be performed immediately prior to Metamizole dosing. AMYLASE - Normal Amylase 30 TROPONIN SERIES- (INITIAL, 1 HR) Narrative: The following orders were created for panel order Troponin I Series, High Sensitivity (0, 1 HR). Procedure Abnormality Status --------- ------ Troponin I, High Sensiti...[[id number]] Normal Final result Troponin, High Sensitivi...[[id number]] Normal Final result Please view results for these tests on the individual orders. CT angio chest for pulmonary embolism Final Result 1. No pulmonary embolism. No acute cardiopulmonary abnormality. 2. Mildly prominent common bile duct measuring 0.7 cm. Correlation with LFTs is suggested. 3. Prominent bilateral renal pelves and calices, suspicious for mild hydronephrosis. Consider correlation with renal ultrasound. 4. Diffuse hepatic hypoattenuation may be secondary to steatosis or contrast bolus timing. Signed by: Noel Herring 04/26/2023 7:02 PM Dictation workstation: [id number] XR chest 1 view Final Result 1. No acute cardiopulmonary process. Signed by: Noel Herring 04/26/2023 7:17 PM Dictation workstation: [id number] Medical Decision Making 1 take medication as prescribed 2 follow-up with Dr. Lerner, if symptoms worsen return to ED. Final diagnoses: [K22.0] Achalasia [R07.9] Chest pain, unspecified type Procedure Procedures DO Anju Barboza DO 04/26/232041 documented in this encounter [facility] Work Phone: 04-26-2023 Physician Emergency department Note Emergency Medicine Transition of Care Note. I received Dannie Mary in signout from Dr. Moe. Please see the previous ED provider note for all HPI, PE and MDM up to the time of signout at 1900. This is in addition to the primary record. In brief Dannie Mary is an 38 y.o. male presenting for Chief Complaint Patient presents with Chest Pain Patient to ED via wheelchair with c/o chest pain, onset 1615 today while sitting in chair. Reports chest and head pressure, hands and feet tingling and I could hear my heartbeat -- episode lasted approx 1 minute. Denies chest pain at this time but c/o feeling shaky Reports difficulty swallowing x 2 years, like my food gets stuck At the time of signout we were awaiting:CT of Chest. With the patient at length. He indicated to me that he has been having problems swallowing for approximately 1 year. Patient states the symptoms associated with with that or why he is here. Patient will be given a dose of Carafate and reassessed. I did go over all the results with the patient indicating this is not cardiac but I have concerns that he has some type of achalasia or dysphagia. Diagnoses as of 04/26/232041 Achalasia Chest pain, unspecified type Labs Reviewed CBC WITH AUTO DIFFERENTIAL - Abnormal Result Value WBC 6.3 nRBC 0.0 RBC 4.52 Hemoglobin 13.1 (*) Hematocrit 39.7 (*) MCV 88 MCH 29.0 MCHC 33.0 RDW 12.5 Platelets 180 Neutrophils % 64.8 Immature Granulocytes %, Automated 0.3 Lymphocytes % 23.1 Monocytes % 7.5 Eosinophils % 3.3 Basophils % 1.0 Neutrophils Absolute 4.08 Immature Granulocytes Absolute, Automated 0.02 Lymphocytes Absolute 1.45 Monocytes Absolute 0.47 Eosinophils Absolute 0.21 Basophils Absolute 0.06 COMPREHENSIVE METABOLIC PANEL - Abnormal Glucose 145 (*) Sodium 137 Potassium 3.3 (*) Chloride 103 Bicarbonate 25 Anion Gap 12 Urea Nitrogen 7 Creatinine 0.68 eGFR >90 Calcium 8.9 Albumin 4.1 Alkaline Phosphatase 61 Total Protein 7.0 AST 45 (*) Bilirubin, Total 0.3 ALT 70 (*) MAGNESIUM - Abnormal Magnesium 1.59 (*) D-DIMER, VTE EXCLUSION - Normal D-Dimer, Quantitative VTE Exclusion <215 Narrative: The VTE Exclusion D-Dimer assay is reported in ng/mL Fibrinogen Equivalent Units (FEU). Per back roll lathe operator's instructions for use, a value of less than 500 ng/mL (FEU) may help to exclude DVT or PE in outpatients when the assay is used with a clinical pretest probability assessment.([facility] must utilize and document eCalc 'Wells Score Deep Vein Thrombosis Risk' for DVT exclusion only. Emergency Department should utilize Guidelines for Emergency Department Use of the VTE Exclusion D-Dimer and Clinical Pretest probability assessment model for DVT or PE exclusion.) SERIAL TROPONIN-INITIAL - Normal Troponin I, High Sensitivity <3 Narrative: Less than 99th percentile of normal range cutoff- Female and children under 18 years old <14 ng/L; Male <21 ng/L: Negative Repeat testing should be performed if clinically indicated. Female and children under 18 years old 14-50 ng/L; Male 21-50 ng/L: Consistent with possible cardiac damage and possible increased clinical risk. Serial measurements may help to assess extent of myocardial damage. >50 ng/L: Consistent with cardiac damage, increased clinical risk and myocardial infarction. Serial measurements may help assess extent of myocardial damage. NOTE: Children less than 1 year old may have higher baseline troponin levels and results should be interpreted in conjunction with the overall clinical context. NOTE: Troponin I testing is performed using a different testing methodology at [facility] than at other [facility]. Direct result comparisons should only be made within the same method. SERIAL TROPONIN, 1 HOUR - Normal Troponin I, High Sensitivity <3 Narrative: Less than 99th percentile of normal range cutoff- Female and children under 18 years old <14 ng/L; Male <21 ng/L: Negative Repeat testing should be performed if clinically indicated. Female and children under 18 years old 14-50 ng/L; Male 21-50 ng/L: Consistent with possible cardiac damage and possible increased clinical risk. Serial measurements may help to assess extent of myocardial damage. >50 ng/L: Consistent with cardiac damage, increased clinical risk and myocardial infarction. Serial measurements may help assess extent of myocardial damage. NOTE: Children less than 1 year old may have higher baseline troponin levels and results should be interpreted in conjunction with the overall clinical context. NOTE: Troponin I testing is performed using a different testing methodology at [facility] than at other [facility]. Direct result comparisons should only be made within the same method. LIPASE - Normal Lipase 14 Narrative: Venipuncture immediately after or during the administration of Metamizole may lead to falsely low results. Testing should be performed immediately prior to Metamizole dosing. AMYLASE - Normal Amylase 30 TROPONIN SERIES- (INITIAL, 1 HR) Narrative: The following orders were created for panel order Troponin I Series, High Sensitivity (0, 1 HR). Procedure Abnormality Status --------- ------ Troponin I, High Sensiti...[[id number]] Normal Final result Troponin, High Sensitivi...[[id number]] Normal Final result Please view results for these tests on the individual orders. CT angio chest for pulmonary embolism Final Result 1. No pulmonary embolism. No acute cardiopulmonary abnormality. 2. Mildly prominent common bile duct measuring 0.7 cm. Correlation with LFTs is suggested. 3. Prominent bilateral renal pelves and calices, suspicious for mild hydronephrosis. Consider correlation with renal ultrasound. 4. Diffuse hepatic hypoattenuation may be secondary to steatosis or contrast bolus timing. Signed by: Noel Herring 04/26/2023 7:02 PM Dictation workstation: [id number] XR chest 1 view Final Result 1. No acute cardiopulmonary process. Signed by: Noel Herring 04/26/2023 7:17 PM Dictation workstation: [id number] Medical Decision Making 1 take medication as prescribed 2 follow-up with Dr. Lerner, if symptoms worsen return to ED. Final diagnoses: [K22.0] Achalasia [R07.9] Chest pain, unspecified type Procedure Procedures DO Anju Barboza DO 04/26/232041 [facility] Work Phone: 02-27-2023 Emergency department Note Images from the original note were not included. HPI Chief Complaint Patient presents with Headache States approx 1 month ago he hit his head on an open colbert of a vehicle and had +loc. C/o h/a on and off since. Patient complains of ongoing headache now for about a month. States he was ambulating at a junk yard and had his head down looking at his phone and walked right into a piece of a vehicle to the right side of his head. States that he hit his head and got knocked out. Awoke on the ground. States he had a laceration that he repaired himself with [id number] superglue. States that he is continued with headaches that have gradually gotten worse. States that the headache yesterday evening was so bad that he felt like his vision was distorted mostly in the right eye. His vision has returned to normal now in the emergency department. But he continues with a headache. He also believes that he has a mild cold and calls it sinus trouble. Patient denies any neck pain. No history of headaches. Patient denies any other injuries. History provided by: Patient Pablo Coma Scale Score: 15 Patient History History reviewed. No pertinent past medical history. History reviewed. No pertinent surgical history. No family history on file. Social History Tobacco Use Smoking status: Former Types: Cigarettes Smokeless tobacco: Not on file Substance Use Topics Alcohol use: Not Currently Drug use: Yes Types: Marijuana Physical Exam ED Triage Vitals [02/27/23 0955] Temp Heart Rate Resp BP 36.1 C (97 F) 77 18 (!) 136/91 SpO2 Temp Source Heart Rate Source Patient Position 97 % Tympanic Monitor -- BP Location FiO2 (%) -- -- Physical Exam Vitals and nursing note reviewed. Constitutional: General: He is not in acute distress. Appearance: Normal appearance. He is well-developed, well-groomed and normal weight. He is not ill-appearing, toxic-appearing or diaphoretic. HENT: Head: Normocephalic. Nose: Nose normal. Mouth/Throat: Lips: [place]. No lesions. Mouth: Mucous membranes are moist. Eyes: General: Lids are normal. No visual field deficit or scleral icterus. Conjunctiva/sclera: Conjunctivae normal. Pupils: Pupils are equal, round, and reactive to light. Neck: Meningeal: Kernig's sign absent. Cardiovascular: Rate and Rhythm: Normal rate and regular rhythm. Heart sounds: Normal heart sounds. Pulmonary: Effort: Pulmonary effort is normal. Breath sounds: Normal breath sounds and air entry. Musculoskeletal: Cervical back: No rigidity. No spinous process tenderness or muscular tenderness. Lymphadenopathy: Cervical: No cervical adenopathy. Neurological: Mental Status: He is alert and oriented to person, place, and time. GCS: GCS eye subscore is 4. GCS verbal subscore is 5. GCS motor subscore is 6. Cranial Nerves: No cranial nerve deficit, dysarthria or facial asymmetry. Sensory: No sensory deficit. Motor: No weakness. Gait: Gait normal. Psychiatric: Attention and Perception: Attention and perception normal. Mood and Affect: Mood and affect normal. Speech: Speech normal. Behavior: Behavior normal. Behavior is cooperative. Thought Content: Thought content normal. Cognition and Memory: Cognition and memory normal. Judgment: Judgment normal. ED Course & MDM Diagnoses as of 02/27/23 1145 Acute nonintractable headache, unspecified headache type Medical Decision Making Patient complains of ongoing headache now for about a month. States he was ambulating at a junk yard and had his head down looking at his phone and walked right into a piece of a vehicle to the right side of his head. States that he hit his head and got knocked out. Awoke on the ground. States he had a laceration that he repaired himself with [id number] superglue. States that he is continued with headaches that have gradually gotten worse. States that the headache yesterday evening was so bad that he felt like his vision was distorted mostly in the right eye. His vision has returned to normal now in the emergency department. But he continues with a headache. He also believes that he has a mild cold and calls it sinus trouble. Patient denies any neck pain. No history of headaches. Patient denies any other injuries. Ddx: ICH, contusion, headache, viral illness, COVID, flu, other Patient was adamant he did not want any narcotics for his headache. He was agreeable to Toradol Reglan and Benadryl IM. Patient excellent response to medications given in the ED. He was able to rest comfortably afterwards. CT was negative swabs were negative. he had improvement of his headache. Discharged home in improved and stable condition. Patient appreciative of care. Problems Addressed: Acute nonintractable headache, unspecified headache type: undiagnosed new problem with uncertain prognosis Details: Patient had excellent response with IM Toradol Reglan and Benadryl. He was able to rest comfortably in the ED. CT of the head was negative. Amount and/or Complexity of Data Reviewed Labs: ordered. Decision-making details documented in ED Course. Details: Flu and COVID were negative. Radiology: ordered and independent interpretation performed. Decision-making details documented in ED Course. Details: No acute findings on CT Risk Prescription drug management. Diagnosis or treatment significantly limited by social determinants of health. Procedure Procedures Monalisa Godoy PA-C 02/27/23 1145 documented in this encounter [facility] Work Phone: 02-27-2023 Physician Emergency department Note Images from the original note were not included. HPI Chief Complaint Patient presents with Headache States approx 1 month ago he hit his head on an open colbert of a vehicle and had +loc. C/o h/a on and off since. Patient complains of ongoing headache now for about a month. States he was ambulating at a junk yard and had his head down looking at his phone and walked right into a piece of a vehicle to the right side of his head. States that he hit his head and got knocked out. Awoke on the ground. States he had a laceration that he repaired himself with [id number] superglue. States that he is continued with headaches that have gradually gotten worse. States that the headache yesterday evening was so bad that he felt like his vision was distorted mostly in the right eye. His vision has returned to normal now in the emergency department. But he continues with a headache. He also believes that he has a mild cold and calls it sinus trouble. Patient denies any neck pain. No history of headaches. Patient denies any other injuries. History provided by: Patient Winifrede Coma Scale Score: 15 Patient History History reviewed. No pertinent past medical history. History reviewed. No pertinent surgical history. No family history on file. Social History Tobacco Use Smoking status: Former Types: Cigarettes Smokeless tobacco: Not on file Substance Use Topics Alcohol use: Not Currently Drug use: Yes Types: Marijuana Physical Exam ED Triage Vitals [02/27/23 0955] Temp Heart Rate Resp BP 36.1 C (97 F) 77 18 (!) 136/91 SpO2 Temp Source Heart Rate Source Patient Position 97 % Tympanic Monitor -- BP Location FiO2 (%) -- -- Physical Exam Vitals and nursing note reviewed. Constitutional: General: He is not in acute distress. Appearance: Normal appearance. He is well-developed, well-groomed and normal weight. He is not ill-appearing, toxic-appearing or diaphoretic. HENT: Head: Normocephalic. Nose: Nose normal. Mouth/Throat: Lips: [place]. No lesions. Mouth: Mucous membranes are moist. Eyes: General: Lids are normal. No visual field deficit or scleral icterus. Conjunctiva/sclera: Conjunctivae normal. Pupils: Pupils are equal, round, and reactive to light. Neck: Meningeal: Kernig's sign absent. Cardiovascular: Rate and Rhythm: Normal rate and regular rhythm. Heart sounds: Normal heart sounds. Pulmonary: Effort: Pulmonary effort is normal. Breath sounds: Normal breath sounds and air entry. Musculoskeletal: Cervical back: No rigidity. No spinous process tenderness or muscular tenderness. Lymphadenopathy: Cervical: No cervical adenopathy. Neurological: Mental Status: He is alert and oriented to person, place, and time. GCS: GCS eye subscore is 4. GCS verbal subscore is 5. GCS motor subscore is 6. Cranial Nerves: No cranial nerve deficit, dysarthria or facial asymmetry. Sensory: No sensory deficit. Motor: No weakness. Gait: Gait normal. Psychiatric: Attention and Perception: Attention and perception normal. Mood and Affect: Mood and affect normal. Speech: Speech normal. Behavior: Behavior normal. Behavior is cooperative. Thought Content: Thought content normal. Cognition and Memory: Cognition and memory normal. Judgment: Judgment normal. ED Course & MDM Diagnoses as of 02/27/23 1145 Acute nonintractable headache, unspecified headache type Medical Decision Making Patient complains of ongoing headache now for about a month. States he was ambulating at a junk yard and had his head down looking at his phone and walked right into a piece of a vehicle to the right side of his head. States that he hit his head and got knocked out. Awoke on the ground. States he had a laceration that he repaired himself with [id number] superglue. States that he is continued with headaches that have gradually gotten worse. States that the headache yesterday evening was so bad that he felt like his vision was distorted mostly in the right eye. His vision has returned to normal now in the emergency department. But he continues with a headache. He also believes that he has a mild cold and calls it sinus trouble. Patient denies any neck pain. No history of headaches. Patient denies any other injuries. Ddx: ICH, contusion, headache, viral illness, COVID, flu, other Patient was adamant he did not want any narcotics for his headache. He was agreeable to Toradol Reglan and Benadryl IM. Patient excellent response to medications given in the ED. He was able to rest comfortably afterwards. CT was negative swabs were negative. he had improvement of his headache. Discharged home in improved and stable condition. Patient appreciative of care. Problems Addressed: Acute nonintractable headache, unspecified headache type: undiagnosed new problem with uncertain prognosis Details: Patient had excellent response with IM Toradol Reglan and Benadryl. He was able to rest comfortably in the ED. CT of the head was negative. Amount and/or Complexity of Data Reviewed Labs: ordered. Decision-making details documented in ED Course. Details: Flu and COVID were negative. Radiology: ordered and independent interpretation performed. Decision-making details documented in ED Course. Details: No acute findings on CT Risk Prescription drug management. Diagnosis or treatment significantly limited by social determinants of health. Procedure Procedures Monalisa Godoy PA-C 02/27/23 1145 [facility] Work Phone: documented in this encounter [facility] Work Phone: Evaluation note* Diagnosis Achalasia- Primary Achalasia and cardiospasm Chest pain, unspecified type documented in this encounter [facility] Work Phone: Evaluation note* Diagnosis Achalasia- Primary Achalasia and cardiospasm Gastroesophageal reflux disease without esophagitis Esophageal reflux documented in this encounter [facility] Work Phone: Summary Purpose Family History No Family History Records FoundNo Family History Records FoundNo Family History Records FoundNo Family History Records FoundNo Family History Records FoundNo Family History Records FoundNo Family History Records FoundNo Family History Records Found Advance Directives No Advanced Directives Records FoundDocuments on File Type Date 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 Assessments Diagnosis Viral illness Unspecified viral infection, in conditions classified elsewhere and of unspecified site Additional Source Comments (unrecognized sect ion and content) No Status Records FoundNo Status Records FoundNo Status Records FoundNo Status Records FoundNo Status Records FoundNo Status Records FoundNo Status Records FoundNo Status Records Found INFORMATION SOURCE (unrecogn ized section and content) DATE CREATED AUTHOR AUTHOR'S ORGANIZ ATION 02/14/2020 [facility] DATE CREATED AUTHOR AUTHOR'S ORGANIZ ATION 02/20/2021 [facility] DATE CREATED AUTHOR AUTHOR'S ORGANIZ ATION 09/04/2021 [facility] DATE CREATED AUTHOR AUTHOR'S ORGANIZ ATION 05/05/2023 [facility] DATE CREATED AUTHOR AUTHOR'S ORGANIZ ATION 05/05/2023 [facility] DATE CREATED AUTHOR AUTHOR'S ORGANIZ ATION 05/08/2023 [facility] DATE CREATED AUTHOR AUTHOR'S OR[facility]IZ ATION [facility] Reason for Visit (unrecogniz ed section and content) Reason Comments Chest Pain Patient to ED via wh eelchair with c/o chest pain, onset 1615 today while sitting in chair. Reports chest and head pressure, hands and feet tingling and I could hear my heartbeat -- episode lasted approx 1 minute. Denies chest pain at this time but c/o feeling shaky Reports difficulty swallowing x 2 years, like my food gets stuck Reason Comments Tremors Dysphagia Scheduled Active and Recently Administ ered Medications (unrecognized section and content) Scheduled Medication Order 04/24/2023 04/25/2023 04/26/2023 acetaminophen (Tylenol) tablet 650 mg (COMPLETED) 650 mg, oral, Once, On 04/26/23 at 1930, For 1 dose, If ordered PRN for pain, nurse is permitted to administer this medication for higher pain scores based on patient preference? Yes 1957 (Given - Provid er: Aleida Denise RN) iohexol (OMNIPaque) 350 mg iodine/mL solution 68 mL (COMPLETED) 68 mL, intravenous, Once in imaging, Starting on 04/26/23 at 1826, For 1 dose 181 (Given - Provid er: Zhen Navarrete) potassium chloride (Klor-Con) packet 20 mEq (COMPLETED) 20 mEq, oral, Once, On 04/26/23 at 2010, For 1 dose, Dissolve each packet in 4 ounces of water = 5 mEq per 1 oz fluid. 2011 (Given - Provid er: Aleida Denise RN) sodium chloride 0.9 % bolus 1,000 mL (COMPLETED) 1,000 mL, intravenous, at 1,000 mL/hr, Administer over 1 Hours, Once, On 04/26/23 at 1755, For 1 dose 1756 (New Bag - Prov ider: Nati Greenwood RN)185 (Stopped - Provider: Aleida Denise RN) sucralfate (Carafate) suspension 1 g 1 g, oral, Every 6 hours scheduled, First dose on 04/26/23 at 1955, SHAKE WELL 1957 (Given - Provid er: Aleida Denise RN) sucralfate (Carafate) suspension 1 g 1 g, oral, Every 6 hours scheduled, First dose on Thu04/26/23 at 2040, SHAKE WELL 2039 (Not Given - Pr ovider: Aleida Denise RN - Reason: Contraindicated - Comment: recent admin) Continuous Medication Order 04/24/2023 04/25/2023 04/26/2023 sodium chloride 0.9% infusion 150 mL/hr, intravenous, Continuous, Starting on Thu04/26/23 at 1755 1913 (New Bag - Prov ider: Aleida Denise RN)8 (Stopped - Provider: Aleida Denise RN) Scheduled Medication Order 04/27/2023 04/28/2023 04/29/2023 famotidine (Pepcid) tablet 20 mg (COMPLETED) 20 mg, oral, Once, On Thu04/29/23 at 0035, For 1 dose 0053 (Given - Provid er: Almita Garnett RN) sucralfate (Carafate) suspension 1 g 1 g, oral, Every 6 hours scheduled, First dose on Thu04/29/23 at 0000, SHAKE WELL 0007 (Given - Provid er: Almita Garnett RN)0600 (Due)1200 (Due)1800 (Due) Care Teams (unrecognized sec tion and content) Palliative Medicine Physician Relationship Specialty Start Date End Date Anila Wagner APRN-PARTY PLAN SELLING DISTRIBUTOR [address] [place] [address] PCP - General Family Medicine 02/27/23 Palliative Medicine Physician Relationship Specialty Start Date End Date Anila Wagner APRN-PARTY PLAN SELLING DISTRIBUTOR [address] [place] [address] PCP - General Family Medicine 02/27/23 Palliative Medicine Physician Relationship Specialty Start Date End Date Anila Wagner APRN-PARTY PLAN SELLING DISTRIBUTOR [address] [place] [address] PCP - General Family Medicine 02/27/23 Palliative Medicine Physician Relationship Specialty Start Date End Date Anila WagnerROLLY [address] [facility] [place] [address] PCP - General Family Medicine 03/18/20 Source Comments (unrecognize d section and content) In the event this informatio n is protected by the Federal Confidentiality of Alcohol and Drug Abuse Patient Records regulations: The Federal rules restrict any use of the information to criminally investigate or prosecute any alcohol or drug abuse patient.[facility] FOR RECORDS PERTAINING TO PATIENTS WHO ARE OR HAVE BEEN ENROLLED IN A CHEMICAL DEPENDENCY/SUBSTANCEABUSE PROGRAM, SOME INFORMATION MAY BE OMITTED. This clinical summary was aggregated from multiple sources. Caution should be exercised in using it in the provision of clinical care. This summary normalizes information from multiple sources, and as a consequence, information in this document may materially change the coding, format and clinical context of patient data. In addition, data may be omitted in some cases. CLINICAL DECISIONS SHOULD BE BASED ON THE PRIMARY CLINICAL RECORDS. [email or web address] [facility]. provides no warranty or guarantee of the accuracy or completeness of information in this document.
--- NOTE | 2023-05-12 22:56 | EKG12_ITS ---
Test Reason : SOB Blood Pressure : / mmHG Vent. Rate : 078 BPM Atrial Rate : 078 BPM P-R Int : 164 ms QRS Dur : 084 ms QT Int : 348 ms P-R-T Axes : 081 074 052 degrees QTc Int : 396 ms Normal sinus rhythm Possible Left atrial enlargement Borderline ECG Confirmed by Denilson Tomas ([id number]), web editor BAHMAN MURDOCK ([id number]) on 05/13/2023 10:57:50 AM Referred By: CARLA Confirmed By:Denilson Tomas
--- NOTE | 2023-05-12 22:58 | EDS_ITS ---
HPI History of Present Illness Chief Complaint: Shortness of Breath Informant: patient Narrative Narrative: 38-year-old male presents for a 15 to 20-minute episode of diffuse chest tightness, a pressure sensation it rises up to his throat and when he gets there makes it so that he cannot breathe, and spontaneously abates. He has tried Tums but has not helped. Sometimes when he drinks water he can push it back down. These episodes been occurring for the past 2 weeks. He states this started after he choked on a bite of burrito. He has had multiple ER visits but this is the first time he has tried this hospital. He pulls up some limited records from [facility] where he was admitted, had an EGD, and discharged 4 days ago, he states that the episodes were better when he was in the hospital the EGD showed some esophageal narrowing according to the patient but nothing else, he was placed on Protonix and some other medications, and since he has been home has been having more episodes and tonight was a severe 1. He feels fine now. He states he can breathe fine when he does not have the pressure sensation up and to the bottom of his throat. He states when that happens he gets a metal or weird taste in his mouth. [facility] Medical History (Updated 05/13/23 @ 00:[address] Deon Adams MD) Normal esophagogastroduodenoscopy (EGD) Medical History no medical history no medical history Home Medications hyoscyamine sulfate 0.125 mg sublingual tablet 0.125 mg sublingual Q6H PRN upper abd discomfort #12 tabs 05/13/23 [Rx Last Taken Unknown] Allergy/AdvReac Type Severity Reaction Status Date / Time naloxone Allergy Severe Swelling Verified 05/12/23 22:28 tramadol Allergy Mild hives Verified 05/12/23 22:28 Social History Smoking Status: Former smoker ROS ROS ED Constitutional Constitutional ED: Denies chills or fever(s) Eyes Eyes: Denies change in vision or diplopia ENT ENT ED: Denies rhinorrhea or sore throat Cardiovascular Cardiovascular: Reports as per HPI and chest pain; Denies palpitations Respiratory/Chest Respiratory/Chest: Denies cough Gastrointestinal Gastrointestinal: Reports other Details: feels like a knot in my [epigastrium] ; Denies abdominal pain, diarrhea, nausea or vomiting Genitourinary Genitourinary ED: Denies dysuria or hematuria Musculoskeletal Musculoskeletal: Denies back pain or neck pain Integumentary Denies abscess or rash Neurologic Neurologic: Denies headache(s), paresthesias or weakness Psychiatric Psychiatric: Reports anxiety; Denies suicidal thoughts EXAM Physical Exam Const Vital Signs: 05/12/23 22:22 05/12/23 22:26 05/12/23 22:28 Temperature 98.5 F Temperature Source Oral Pulse Rate 88 Respiratory Rate 13 Respiratory Effort Normal Non-Labored Normal Non-Labored Respiratory Depth Normal Respiratory Pattern Normal Blood Pressure 135/73 H Blood Pressure Mean 93 Pulse Ox 97 Oxygen Delivery Method Room Air Room Air 05/12/23 23:12 Temperature Temperature Source Pulse Rate Respiratory Rate Respiratory Effort Respiratory Depth Respiratory Pattern Blood Pressure Blood Pressure Mean Pulse Ox Oxygen Delivery Method Room Air Positive well nourished and well developed General Appearance ED: well developed and NAD HEENT Reports moist mucous membranes normocephalic and atraumatic Eyes PERRL and EOMs intact bilaterally Neck full ROM, supple and no JVD Chest Wall inspection of chest normal and palpation of chest normal Resp normal respiratory effort and clear to auscultation bilaterally Cardio regular rate, regular rhythm and no murmurs Rate: Negative for tachycardic GI non-distended GI Narrative: mild epigastric tenderness Auscultation: normoactive bowel sounds Palpation: soft Back/Spine no CVA tenderness General Back: other FROM Extremity normal to inspection General Extremety ED: Negative for edema, pulses abnormal or tenderness General Extremity: Negative for edema or pulses abnormal Neuro oriented x3, CN's II-XII intact bilaterally and no sensory deficits noted Sensorium / Orientation: awake and alert Motor Exam: strength 5/5 throughout Psych mental status grossly normal Mood & Affect: anxious Skin no rashes or lesions noted and no wounds Heart Score History: Moderately Suspicious ECG: Normal Age: </= 45 years Risk Factors: 1 or 2 Risk Factors Troponin: </= Normal Limit Score: 2 MDM MDM MDM Narrative Medical decision making narrative: Patient asymptomatic at this time with a normal EKG and negative troponin. Plan will be to repeat that troponin 2 hours later per protocol, if negative and/or a low delta, plan will be to reassure him and have him follow-up as an outpatient. I would work him up for PE as well, but since he has been having these episodes for 2 weeks and near the beginning had a normal CTA, I do not think it is necessary to repeat that or a D-dimer for that matter. I discussed that with him and he is in agreement. In discussing the etiology of his symptoms, given that his workup is negative, my suspicion is that it is esophageal. However he states he just had an EGD and it showed some narrowing but nothing else like an ulcer, varices, etc. so it could be esophageal spasm. I talked him about this, and he is in agreement that is possible. I think prescribing him some hyoscyamine in order to try if he has more episodes until he can follow-up with his primary doctor would be reasonable he is okay with that plan as well. Although intermittent cardiac etiologies that could be electrical or vascular are in the differential, his heart score is very low, and it is well-documented that he has a very low risk of morbidity/mortality as a result of cardiac etiology in the next 30 days and should be safe to follow-up. Patient's second troponin returned at 6.3, negligible delta. No recurrence of symptoms stable for discharge. History & Record Review Additional record(s) reviewed:: Other (old imaging: negative CTA chest [facility] 04/29/23, for same symptoms per pt) Lab Data Attestation: I reviewed the patient's lab results. Labs: Laboratory Results - last 24 hr 05/12/23 23:15 WBC 11.8 H RBC 4.65 Hgb 13.3 Hct 40.2 MCV 86.5 MCH 28.6 MCHC 33.1 RDW Std Deviation 39.8 RDW Coeff of [place] 12.5 Plt Count 250 MPV 9.5 Immature Gran % (Auto) 0.200 Neut % (Auto) 75.3 H Lymph % (Auto) 14.9 L [place] % (Auto) 8.1 Eos % (Auto) 1.0 Baso % (Auto) 0.5 Absolute Neuts (auto) 8.9 H Absolute Lymphs (auto) 1.77 Nucleated RBC % 0 Sodium 140 Potassium 4.1 Chloride 108 H Carbon Dioxide 28.0 Anion Gap 4 L BUN 8 Creatinine 0.69 L Estim Creat Clear Calc 132.02 Est GFR (MDRD) Af Amer 164 Est GFR (MDRD) Non-Af 136 BUN/Creatinine Ratio 11.6 Glucose 115 H Calcium 8.9 Troponin I High Sens 5 Radiography Chest X-Ray - ED: 1 View, Read by ED Physician, No Acute Disease and No Infiltrates Diagnostic Testing: Clinical Impression(s) from Imaging Studies Chest X-Ray 05/12/23 23:09 IMPRESSION: 1. No radiographic evidence of acute cardiopulmonary disease. Electronically Signed: Denilson Quinones DO at 23:23 EST , Rhythm Strip Rhythm Strip: Sinus Rhythm Rate: 85 Ectopy: None EKG Initial EKG: Attestation: I personally reviewed and interpreted this EKG as follows: Interpretation: Sinus Rhythm and No Acute Injury Pattern Comments: nml EKG Prior EKG tracings: not available for review Prior: No Prior Discharge Plan Triage Chief Complaint: Shortness of Breath ED Provider: Deon Adams Dx/Rx/DC Orders Clinical Impression: Chest pain Instructions: ED Chest Pain, Uncertain Cause, ED Esophageal Spasm Prescriptions: New hyoscyamine sulfate 0.125 mg tablet, sublingual 0.125 mg sublingual Q6H PRN (Reason: upper abd discomfort) Qty: 12 0RF Primary Care Provider: Anila Isidro NP Referrals: Anila Isidro NP, BULK MATERIALS HANDLING PLANT OPERATOR-C [Primary Care Provider] - As soon as possible (and/or your GI doctor (who did your scope)) Disposition Disposition: Home, Self Care Discharge Date/Time: 05/13/23 02:28
--- NOTE | 2023-05-12 23:09 | RAD_ITS ---
INDICATION: chest pain/sob EXAMINATION/TECHNIQUE: X-RAY - XR Chest 2 Views COMPARISON: None. FINDINGS: LINES/DEVICES: None. LUNGS: Symmetric normal lung volumes. No airspace opacity or abnormal interstitial pattern. No nodule or mass. No pleural effusion or pneumothorax. MEDIASTINUM AND CARDIOVASCULAR STRUCTURES: Normal size and contour of the cardiomediastinal silhouette. No evidence of pulmonary vascular congestion. BONES AND SOFT TISSUES: No fracture or focal osseous lesion. Slight pectus excavatum deformity. RAD/Chest PA and Lateral IMPRESSION: 1. No radiographic evidence of acute cardiopulmonary disease. Electronically Signed: Denilson Quinones DO at 23:23 EST ,
[2023-05-12 23:24] LABS: Absolute Lymphocyte Count 1.77 X10^3/uL (0.83-4.51); Absolute Neutrophil Count 8.9 X10^3/uL (2.0-7.7); Basophil# 0.06 X10^3/uL; Basophil% 0.5 % (0-1); Eosinophil# 0.12 X10^3/uL; Hematocrit 40.2 % (40-54); Hemoglobin 13.3 g/dL (13.0-16.5); Lymphocyte # 1.77 X10^3/ul (0.83-4.51); Lymphocyte % 14.9 % (19-41); Mean Corp Hgb Conc 33.1 g/dL (32-36); Mean Corpuscular Hgb 28.6 pg (27.0-32.0); Mean Corpuscular Volume 86.5 fL (80-94); Mean Platelet Vol. 9.5 fl (6.2-12.0); Monocyte# 0.96 X10^3/uL; Monocyte% 8.1 % (0-10); NRBC Flagged by Analyzer 0 % (0-5); Neutrophil # 8.91 X10^3/uL (2.7-7.7); Neutrophil % 75.3 % (47-70); Platelet Count 250 K/mm3 (150-450); RBC Distribution Width CV 12.5 % (11.6-14.6); RBC Distribution Width SD 39.8 fl (35.1-43.9); Red Blood Count 4.65 M/mm3 (4.6-6.2); White Blood Count 11.8 K/mm3 (4.4-11.0)
[2023-05-12 23:39] LABS: Anion Gap 4 (5-15); BUN 8 mg/dL (7-18); BUN/Creat Ratio 11.6 RATIO (10-20); Calcium,Total 8.9 mg/dL (8.5-10.1); Chloride 108 mmol/L (98-107); Creatinine, Serum 0.69 mg/dL (0.70-1.30); EST Glomerular Filtration Rate 136 mL/min (>60); Est Glom Filt Rate - Afr Amer 164 mL/min (>60); Estimated Creatinine Clearance 132.02 ml/min; Glucose 115 mg/dL (74-106); Potassium 4.1 mmol/L (3.5-5.1); Sodium Level 140 mmol/L (136-145); Troponin-I HS (w/2H Reflex) 5 pg/mL (3.0-78.0)
[2023-05-13 02:38] LABS: Reflex Troponin-HS? (from REC) Y
[2023-05-13 07:51] LABS: Troponin-I HS 6 pg/mL (3.0-78.0)
== END 2023-05-13 02:28 | disposition home or self-care (01) ==
PROVIDERS: Emergency Provider Emergency Medicine; Visit Provider Emergency Medicine
DX: R07.9 Chest pain, unspecified (principal); Z87.891 Personal history of nicotine dependence
CPT/HCPCS: 71046; 80048; 84484; 85025; 93005; 99284; A4216

== ENCOUNTER 2023-06-02 02:44 | Emergency (ER) | payer OTHER, SELFPAY ==
[2023-06-02 02:45] VITALS: BP 164/129; PULSE 91; RESP 14; TEMP 36.6; O2SAT 98; BMI 20.2
--- NOTE | 2023-06-02 02:50 | RAD_ITS ---
INDICATION: chest pain EXAMINATION/TECHNIQUE: X-RAY - XR Chest 1 View AP portable. 2:55 AM COMPARISON: 05/12/2023 FINDINGS: LINES/DEVICES: None. LUNGS: No consolidation. No pneumothorax. MEDIASTINUM: Unremarkable. CARDIAC SILHOUETTE: Not enlarged. BONES AND SOFT TISSUES: No acute abnormalities. RAD/Chest 1 View (Portable) IMPRESSION: No evidence of active intrathoracic disease. Electronically Signed: Laura Pitt MD at 3:16 EST ,
[2023-06-02 03:43] VITALS: BP 109/55; PULSE 69; RESP 16; O2SAT 97
--- NOTE | 2023-06-02 04:08 | ED.VIS.CHEST ---
HPI History of Present Illness Chief Complaint: Chest Other Informant: patient Onset/Context/Timing Onset: Month(s) (1) Activity at onset: gradual Timing: Continuous Quality: Positive for Stabbing Location: Substernal, Right Parasternal, Left Parasternal, Right Chest and Left Chest Worsened By: Nothing Relieved By: - (Drinking water) Associated Symptoms: Positive for Lightheadedness and Palpitations; Negative for Nausea, Vomiting, Diaphoresis, Dyspnea, Cough, Fever or Acid Reflux Narrative Narrative: Patient presents with chest pain that has been constant for the past month. Patient states he was eating a burrito 1 month ago and had some pain in his chest at that time. Patient states he underwent an endoscopy at [facility], [place] at that time. Patient states that since that time he has been having some pain in his chest. Patient states he gets better when he is able to drink water. Patient admits to some lightheadedness and palpitations. Patient denies any shortness of breath or cough. Patient denies any nausea or vomiting. Patient denies any reflux symptoms. CVD Risk Factors: Negative for Hypertension, Diabetes, Hypercholesterolemia, Family History 1' </=55 or Smoking PE Risk Factors: Negative for Recent Travel/Surgery, Recent Immobilization, Prior DVT or PE, Cancer or OCP + Smoking + >/=35 PFSH PFSH Medical History Normal esophagogastroduodenoscopy (EGD) Home Medications hyoscyamine sulfate 0.125 mg sublingual tablet 0.125 mg sublingual Q6H PRN upper abd discomfort #12 tabs 05/13/23 [Rx Last Taken Unknown] dicyclomine 10 mg capsule 20 mg (2 x 10 mg) PO TIDAC #20 CAPSULES 06/02/23 [Rx Last Taken Unknown] Allergy/AdvReac Type Severity Reaction Status Date / Time naloxone Allergy Severe Swelling Verified 06/02/23 02:45 tramadol Allergy Mild hives Verified 06/02/23 02:45 Surgical History no surgical history no surgical history Social History Smoking Status: Former smoker ROS ROS ED Constitutional Constitutional ED: Denies chills or fever(s) Eyes Eyes: Denies blurry vision or change in vision ENT ENT ED: Reports sore throat; Denies rhinorrhea Cardiovascular Cardiovascular: Reports chest pain and palpitations Respiratory/Chest Respiratory/Chest: Denies cough or dyspnea Gastrointestinal Gastrointestinal: Denies nausea or vomiting Genitourinary Genitourinary ED: Reports urinary frequency; Denies dysuria or hematuria Musculoskeletal Musculoskeletal: Reports back pain; Denies neck pain Integumentary Denies abscess or rash Neurologic Neurologic: Reports headache(s); Denies weakness Allergic/Immunologic Allergic/Immunologic ED: Denies mouth swelling or urticaria EXAM Physical Exam Const Vital Signs: 06/02/23 02:45 06/02/23 03:43 06/02/23 03:45 Temperature 97.9 F Temperature Source Temporal Pulse Rate 91 69 Respiratory Rate 14 16 Respiratory Effort Normal Non-Labored Blood Pressure 164/129 H 109/55 L Blood Pressure Mean 140 73 Pulse Ox 98 97 Oxygen Delivery Method Room Air Room Air 06/02/23 05:13 Temperature Temperature Source Pulse Rate 69 Respiratory Rate 13 Respiratory Effort Blood Pressure 101/68 Blood Pressure Mean 79 Pulse Ox 97 Oxygen Delivery Method Room Air Positive well nourished and well developed General Appearance ED: well developed and NAD HEENT Reports moist mucous membranes Neck supple and no JVD Resp normal respiratory effort and clear to auscultation bilaterally Cardio regular rate and regular rhythm GI soft to palpation, non-tender and non-distended Neuro oriented x3, CN's II-XII intact bilaterally and no sensory deficits noted Sensorium / Orientation: awake and alert Motor Exam: strength 5/5 throughout Psych mental status grossly normal Heart Score History: Slightly/Non-Suspicious ECG: Normal Age: </= 45 years Risk Factors: No Risk Factors Troponin: </= Normal Limit Score: 0 MDM MDM MDM Narrative Medical decision making narrative: Differential diagnosis includes esophageal spasm, GERD, cardiac dysrhythmia, cardiac ischemia, electrolyte abnormality, pneumonia, and anxiety. EKG will be obtained to assess for cardiac dysrhythmia and cardiac ischemia. Chest x-ray will be obtained to assess for pneumonia and pneumothorax. CBC will be obtained to assess for leukocytosis or anemia. Basic metabolic profile will be obtained to assess for electrolyte abnormality and renal function. High-sensitivity troponin will be obtained to assess for cardiac ischemia. Lab Data Attestation: I reviewed the patient's lab results. Lab results narrative: CBC was reviewed. There is a slight anemia with a hemoglobin of 12.0 hematocrit 36.6. Basic metabolic profile was reviewed and was within normal limits. High-sensitivity troponin was reviewed and was normal at 4. Labs: Laboratory Results - last 24 hr 06/02/23 04:36 WBC 7.1 RBC 4.23 L Hgb 12.0 L Hct 36.6 L MCV 86.5 MCH 28.4 MCHC 32.8 RDW Std Deviation 38.5 RDW Coeff of [place] 12.2 Plt Count 194 MPV 9.7 Immature Gran % (Auto) 0.100 Neut % (Auto) 40.7 L Lymph % (Auto) 44.4 H [place] % (Auto) 9.0 Eos % (Auto) 4.8 Baso % (Auto) 1.0 Absolute Neuts (auto) 2.9 Absolute Lymphs (auto) 3.15 Nucleated RBC % 0 Sodium 140 Potassium 3.8 Chloride 106 Carbon Dioxide 29.0 Anion Gap 5 BUN 11 Creatinine 0.58 L Estim Creat Clear Calc 160.47 Est GFR (MDRD) Af Amer 200 Est GFR (MDRD) Non-Af 165 BUN/Creatinine Ratio 18.8 Glucose 103 Calcium 8.6 Troponin I High Sens 4 Radiography Chest X-Ray - ED: 1 View, Read by ED Physician, Read by Radiologist and No Acute Disease Diagnostic Testing: Clinical Impression(s) from Imaging Studies Chest X-Ray 06/02/23 02:50 IMPRESSION: No evidence of active intrathoracic disease. Electronically Signed: Laura Pitt MD at 3:16 EST Reading Location ID and State: [address] [place] [address] Tel , Service support , Portable 1 view chest x-ray was obtained. On my independent interpretation, lung bronson are clear. There is normal cardiac silhouette. Bony thorax is normal. There is no acute process noted. Radiologist also interpreted the x-ray and agrees. EKG Initial EKG: Attestation: I personally reviewed and interpreted this EKG as follows: Interpretation: Sinus Rhythm (79) and No Acute Injury Pattern Comments: EKG was obtained. On my independent interpretation, it showed a normal sinus rhythm with a rate of 79. CA interval, QRS interval, and QTc intervals were all normal. [place] was normal. There are no acute ST or T wave changes. Prior EKG tracings: available for review Prior: Unchanged (05/12/2023) Treatment and Re-Evaluation :: Patient was given a GI cocktail here. Patient was sleeping on reevaluation. Patient was advised of his findings. Patient was advised that this could be esophageal spasm causing his chest pain. Patient was given a prescription for Bentyl for esophageal spasms. Patient has a HEART score of 0. Patient was advised that this is low risk for acute cardiac event. Patient was instructed to follow-up with his primary care physician in 3 to 5 days for further evaluation. Patient understood and was agreeable with the plan. All questions were answered. Discharge Plan Triage Chief Complaint: Chest Other ED Provider: Tyler Rojas Dx/Rx/DC Orders Clinical Impression: Chest pain of uncertain etiology Instructions: ED Chest Pain, Uncertain Cause Prescriptions: New dicyclomine 10 mg capsule 20 mg PO TIDAC Qty: 20 0RF No Action hyoscyamine sulfate 0.125 mg tablet, sublingual 0.125 mg sublingual Q6H PRN (Reason: upper abd discomfort) Qty: 12 0RF Primary Care Provider: Anila Isidro NP Referrals: Anila Isidro NP, [facility] [Primary Care Provider] - 3-5 Days Disposition Disposition: Home, Self Care
[2023-06-02] MEDS: Mag Hydrox/Al Hydrox/Simeth 30 ML UDC PO (04:37)
--- NOTE | 2023-06-02 04:37 | EKG12_ITS ---
Test Reason : CHEST OTHER Blood Pressure : / mmHG Vent. Rate : 079 BPM Atrial Rate : 079 BPM P-R Int : 180 ms QRS Dur : 084 ms QT Int : 356 ms P-R-T Axes : 072 064 047 degrees QTc Int : 408 ms Normal sinus rhythm Possible Left atrial enlargement Borderline ECG Confirmed by Denilson Tomas ([id number]), market editor BAHMAN MURDOCK ([id number]) on 06/03/2023 9:35:36 AM Referred By: BETH Confirmed By:Denilson Tomas
[2023-06-02 04:52] LABS: Absolute Lymphocyte Count 3.15 X10^3/uL (0.83-4.51); Absolute Neutrophil Count 2.9 X10^3/uL (2.0-7.7); Basophil# 0.07 X10^3/uL; Eosinophil# 0.34 X10^3/uL; Eosinophils% 4.8 % (0-5); Hematocrit 36.6 % (40-54); Lymphocyte # 3.15 X10^3/ul (0.83-4.51); Lymphocyte % 44.4 % (19-41); Mean Corp Hgb Conc 32.8 g/dL (32-36); Mean Corpuscular Hgb 28.4 pg (27.0-32.0); Mean Corpuscular Volume 86.5 fL (80-94); Mean Platelet Vol. 9.7 fl (6.2-12.0); Monocyte# 0.64 X10^3/uL; NRBC Flagged by Analyzer 0 % (0-5); Neutrophil # 2.88 X10^3/uL (2.7-7.7); Neutrophil % 40.7 % (47-70); Platelet Count 194 K/mm3 (150-450); RBC Distribution Width CV 12.2 % (11.6-14.6); RBC Distribution Width SD 38.5 fl (35.1-43.9); Red Blood Count 4.23 M/mm3 (4.6-6.2); White Blood Count 7.1 K/mm3 (4.4-11.0)
[2023-06-02 05:13] VITALS: BP 101/68; PULSE 69; RESP 13; O2SAT 97
[2023-06-02 05:21] LABS: Anion Gap 5 (5-15); BUN 11 mg/dL (7-18); BUN/Creat Ratio 18.8 RATIO (10-20); Calcium,Total 8.6 mg/dL (8.5-10.1); Chloride 106 mmol/L (98-107); Creatinine, Serum 0.58 mg/dL (0.70-1.30); EST Glomerular Filtration Rate 165 mL/min (>60); Est Glom Filt Rate - Afr Amer 200 mL/min (>60); Estimated Creatinine Clearance 160.47 ml/min; Glucose 103 mg/dL (74-106); Potassium 3.8 mmol/L (3.5-5.1); Sodium Level 140 mmol/L (136-145); Troponin-I HS 4 pg/mL (3.0-78.0)
[2023-06-02 06:08] VITALS: BP 104/69; PULSE 71; RESP 14; TEMP 36.3; O2SAT 98
== END 2023-06-02 06:13 | disposition home or self-care (01) ==
PROVIDERS: Emergency Provider Emergency Medicine; Visit Provider Emergency Medicine
DX: R07.9 Chest pain, unspecified (principal); Z87.891 Personal history of nicotine dependence
CPT/HCPCS: 71045; 80048; 84484; 85025; 93005; 99282